=== PATIENT | female | born 1990 | race African-American/Black ===

== ENCOUNTER 2020-02-11 16:21 | Inpatient (IN) | payer MEDICAID ==
[~2020-02-11] VITALS: Ht 160 cm; Wt 96.1 kg
[2020-02-11 17:37] LABS: Basophils # (auto) 0.1 10 ^3/uL (0-0.2); Eosinophils # (auto) 0 10 ^3/uL (0-0.8); Hemoglobin 10.3 g/dL (12.2-16.2); Neutrophils # (auto) 4.7 10 ^3/uL (1.6-8.6)
[2020-02-11 17:38] LABS: Basophils % (auto) 0.8 % (0.0-2.0); Eosinophils % (auto) 0.7 % (0.0-7.0); Hematocrit 34.1 % (36.0-46.0); Lymphocytes # (auto) 1.7 10 ^3/uL (0.4-5.4); Lymphocytes % (auto) 23.9 % (10.0-50.0); Mean Corpuscular Hemoglobin 20.2 pg (28.0-32.0); Mean Corpuscular Hgb Conc. 30.3 g/dL (32.0-36.0); Mean Corpuscular Volume 66.4 fL (80.0-100.0); Monocytes # (auto) 0.5 10 ^3/uL (0-1.3); Monocytes % (auto) 6.5 % (0.0-12.0); Neutrophils % (auto) 68.1 % (37.0-80.0); Nucleated Red Blood Cells % 0.9 %; Platelet Count (auto) 205 10^3/uL (140-450); Red Blood Cells 5.13 10^6/uL (4.0-5.20); White Blood Cell 6.9 10^3/uL (4.4-10.8)
[2020-02-11 17:52] LABS: INR 1.4 (0.9-1.15); Partial Thromboplastin Time 23.1 sec (23.0-31.2)
[2020-02-11 17:56] LABS: Albumin 2.6 g/dL (3.4-5.0); Anion Gap 9 (5-15); Blood Urea Nitrogen 12 mg/dL (7-18); Calcium 8.1 mg/dL (8.5-10.1); Carbon Dioxide 21 mmol/L (21-32); Chloride 110 mmol/L (98-107); Glucose 117 mg/dL (74-106); Potassium 3.8 mmol/L (3.5-5.1); Sodium 140 mmol/L (136-145)
[2020-02-11 18:08] LABS: Alanine Aminotransferase 32 U/L (13-56); Alkaline Phosphatase 102 U/L (45-117); Aspartate Aminotransferase 23 U/L (15-37); BUN/Creatinine Ratio 13.3; Bilirubin, Total 1.1 mg/dL (0.2-1.0); GFR African American 95 mL/min; GFR Non-African American 79 mL/min; Total Protein 6.2 g/dL (6.4-8.2)
[2020-02-11] MEDS ORDERED: SPIRONOLACTONE 25 MG TAB PO ONE (19:00)
[2020-02-11] MEDS ORDERED: FUROSEMIDE 40 MG/4 ML VIAL IV ONE (19:00)
[2020-02-11] MEDS ORDERED: IOHEXOL 350 MG/ML 100ML IJ ONE (19:18)
[2020-02-11] MEDS ORDERED: TEMAZEPAM 15 MG CAP PO PRN (21:15)
[2020-02-11] MEDS ORDERED: MORPHINE SULF INJ 2 MG/ML SYRINGE 1ML IV PRN (21:15)
[2020-02-11] MEDS ORDERED: ONDANSETRON HCL 4 MG/2 ML VIAL IV PRN (21:15)
[2020-02-11] MEDS ORDERED: NITROGLYCERIN 0.4 MG SL TAB SL PRN (21:15)
[2020-02-11 22:25] VITALS: BP 118/83
--- NOTE | 2020-02-11 22:25 | NUR ---
Telemetry admit from ER SORAYA HOLLIS admitted to Telemetry unit after SBAR received. Patient oriented to Sherri Moreno, primary RN, unit, room, bed, and unit policies regarding patient care and visiting hours. Patient now on continuous telemetry monitoring, tele box #[id number] and telemetry reading on arrival to unit is [facility]. Patient placed on bedside oxygen, weighed by bed scale and encouraged to call if they need something. All questions and concerns addressed, patient verbalized understanding.
[2020-02-11 22:49] VITALS: BP 118/83
--- NOTE | 2020-02-11 23:00 | NUR ---
[facility] SWAB SENT TO LAB PATIENT REPORTS BEING ADMITTED TO A HOSPITAL WITHIN 30 DAYS.
--- NOTE | 2020-02-11 23:00 | NUR ---
PEPPER SPRAY PEPPER SPRAY COLLECTED FROM PATIENT AND TURNED INTO SECURITY OFFICERS FOR SAFETY STORAGE. PATIENT ID LABEL PLACED ON PEPPER SPRAY AND ON COLLECTION BAG.
[2020-02-11] MEDS: FAMOTIDINE 20 MG TAB PO SCH (23:02)
[2020-02-11] MEDS: CARVEDILOL 3.125 MG TAB PO SCH (23:02)
--- NOTE | 2020-02-12 00:06 | NUR ---
ROUNDS PATIENT RESTING COMFORTABLE IN BED, BED IS LOCKED AT LOWEST POSITION, BED RAILS UP X2. BEDSIDE TABLE WITHIN REACH, CALL LIGHT WITHIN REACH. WILL CONTINUE TO MONITOR Q1H AND PRN.
[2020-02-12 05:35] VITALS: BP 123/79
[2020-02-12] MEDS ORDERED: FUROSEMIDE 20 MG/2 ML VIAL IV SCH (06:00)
[2020-02-12 06:53] LABS: Basophils # (auto) 0 10 ^3/uL (0-0.2); White Blood Cell 6.4 10^3/uL (4.4-10.8)
[2020-02-12 06:54] LABS: Basophils % (auto) 0.7 % (0.0-2.0); Eosinophils # (auto) 0 10 ^3/uL (0-0.8); Eosinophils % (auto) 0.4 % (0.0-7.0); Hematocrit 34.3 % (36.0-46.0); Hemoglobin 10.3 g/dL (12.2-16.2); Lymphocytes # (auto) 1.7 10 ^3/uL (0.4-5.4); Lymphocytes % (auto) 27.2 % (10.0-50.0); Mean Corpuscular Hemoglobin 20.5 pg (28.0-32.0); Mean Corpuscular Hgb Conc. 29.9 g/dL (32.0-36.0); Mean Corpuscular Volume 68.4 fL (80.0-100.0); Monocytes # (auto) 0.6 10 ^3/uL (0-1.3); Monocytes % (auto) 8.7 % (0.0-12.0); Nucleated Red Blood Cells % 1.1 %; Platelet Count (auto) 201 10^3/uL (140-450); Red Blood Cells 5.02 10^6/uL (4.0-5.20); Red Cell Distribution Width 18.3 % (11.8-14.3)
[2020-02-12 07:09] LABS: Potassium 3.7 mmol/L (3.5-5.1)
[2020-02-12 07:14] LABS: BUN/Creatinine Ratio 16.9; Calcium 7.9 mg/dL (8.5-10.1)
[2020-02-12 09:00] VITALS: BP 124/64
[2020-02-12] MEDS ORDERED: LISINOPRIL 5 MG TAB PO SCH (10:00)
[2020-02-12] MEDS: ASPirin 81 mg TAB PO SCH (10:40)
[2020-02-12] MEDS: ENOXAPARIN SOD 40 MG/0.4 ML SYRINGE SC SCH (10:40)
[2020-02-12] MEDS: CARVEDILOL 3.125 MG TAB PO SCH ×2 (10:41→22:04)
[2020-02-12] MEDS: FAMOTIDINE 20 MG TAB PO SCH ×2 (10:41→22:04)
[2020-02-12 13:00] VITALS: BP 118/86
[2020-02-12 15:46] LABS: Alcohol, Urine < 3.0 mg/dL (0-10); Amphetamine Screen, Urine NEGATIVE (NEGATIVE); Barbiturate Scree,Urine NEGATIVE (NEGATIVE); Benzodiazephine Screen, Urine NEGATIVE (NEGATIVE); Cannabinoid Screen, Urine POSITIVE (NEGATIVE); Cocaine Screen, Urine NEGATIVE (NEGATIVE); Opiate Scree,Urine NEGATIVE (NEGATIVE); Phencyclidine Screen, Urine NEGATIVE (NEGATIVE)
[2020-02-12 17:00] VITALS: BP 111/81
[2020-02-12] MEDS: FUROSEMIDE 20 MG/2 ML VIAL IV SCH (18:35)
--- NOTE | 2020-02-12 19:10 | NUR ---
OPENING NOTE- NOC SHIFT PATIENT IS ALERT AND ORIENTED X4 ANSWERS IN COMPLETE SENTENCES AND MAKES APPROPRIATE EYE CONTACT. PATIENT IS SITTING AT EDGE OF BED STATING THAT SHE IS FEELING HEART PALPITATION AND STATES THAT DAY SHIFT RN "PUSHED LASIX IN WAY TOO FAST". PATIENT IS RUNNING SINUS TACH AT 100. S1 AND S2 SOUNDS PRESENT AND EVEN. PATIENT DENIES CHEST PAIN. ASSISTED PATIENT INTO BED AND EDUCATED WITH HER RELAX TECHNIQUES; PATIENT REPORTED TO FEEL BETTER. DISCUSSED POC WITH PATIENT AND INSTRUCTED PATIENT TO CALL PRN; PATIENT VERBALIZED UNDERSTANDING. PATIENT IS ON CONTIUOUS FENCE SETTER. VS WNL WITH EXCEPTION TO HR AT 100; THIS HAS BEEN AN AVERAGE HR FOR THIS PATIENT WHILE ON THIS UNIT. WILL CONTINUE TO MONITOR.
[2020-02-12 19:15] LABS: Urine Bacteria FEW /hpf (None Seen); Urine Blood 2+ /uL (Negative); Urine Mucus FEW (None Seen); Urine WBC 12 /hpf (0 - 5)
--- NOTE | 2020-02-12 20:10 | NUR ---
PATIENT IS COMFORTABLE IN BED. PATIENT STATES TO FEEL BETTER AND RELAXED. HR 98. NO S/SX OF DISTRESS, SOB OR PAIN.
[2020-02-12 22:00] VITALS: BP 114/77
[2020-02-12] MEDS: POTASSIUM CHL 20 Meq TABLET PO SCH (22:04)
[2020-02-12] MEDS: ENALAPRIL MALEATE 2.5 MG TAB PO SCH (22:05)
[2020-02-13] VITALS (7 sets, daily range): BP systolic 108–115; BP diastolic 68–85
--- NOTE | 2020-02-13 00:50 | NUR ---
DR Shon KOVACS AT BEDSIDE FOR CARDIAC CONSULTATION. DR Shon KOVCAS STATED THAT HE WOULD UPDATE DR BYRD AND ASK HIM TO FOLLOW UP WITH IMAGE AND ECHO REPORTS.
[2020-02-13] MEDS: FUROSEMIDE 20 MG/2 ML VIAL IV SCH ×2 (06:04→18:42)
[2020-02-13 06:41] LABS: Potassium 4.1 mmol/L (3.5-5.1)
[2020-02-13 06:51] LABS: BUN/Creatinine Ratio 17.4; Calcium 8.3 mg/dL (8.5-10.1)
--- NOTE | 2020-02-13 08:00 | NUR ---
ASSESSMENT NOTE PT IS ALERT ORIENTED X4, RESTING IN BED COMFORTABLY, NO DISTRESS NOTED, ABLE TO SELF REPOSITION AND VERBALIS NEEDS, AMBULATE NEEDED, PAIN 0/10, PT CONTINUE COMPLYING WITH THE FLUIDS RESTRICTION, CALL LIGHT WITHIN REACH
[2020-02-13] MEDS: ENOXAPARIN SOD 40 MG/0.4 ML SYRINGE SC SCH (09:27)
[2020-02-13] MEDS: ENALAPRIL MALEATE 2.5 MG TAB PO SCH ×2 (09:28→22:15)
[2020-02-13] MEDS: ASPirin 81 mg TAB PO SCH (09:28)
[2020-02-13] MEDS: POTASSIUM CHL 20 Meq TABLET PO SCH (09:28)
[2020-02-13] MEDS: FAMOTIDINE 20 MG TAB PO SCH ×2 (09:28→22:13)
[2020-02-13] MEDS: CARVEDILOL 3.125 MG TAB PO SCH ×2 (09:29→22:14)
--- NOTE | 2020-02-13 11:41 | NUR ---
DR CAREY IS HERE FOLLOWING UP ON PT WITH NEW ORDERS
--- NOTE | 2020-02-13 18:42 | NUR ---
PT CONTINUE STABLE, COMPLYING ON FLUID RESTRICTION, CONTINUE MONITORING
--- NOTE | 2020-02-13 19:20 | NUR ---
Opening Shift Note Assumed patient care from Latia RN. Patient is AOx4 w/ HOB at 30 degrees. Patient has no s/s of distress or SOB. Discussed plan of care w/ patient and all questions answered. Bed locked in lowest position and call light is within reach. Will continue to monitor.
[2020-02-14 04:49] VITALS: BP 102/70
[2020-02-14] MEDS: FUROSEMIDE 20 MG/2 ML VIAL IV SCH (05:52)
[2020-02-14 06:09] LABS: BUN/Creatinine Ratio 20.8; Calcium 8.4 mg/dL (8.5-10.1); Potassium 4.2 mmol/L (3.5-5.1)
--- NOTE | 2020-02-14 07:30 | NUR ---
Opening Shift Note Assumed care of patient, awake and alert. No S/S of distress/SOB or pain.Denies chest pain, zoll vest in place Instructed on POC and to call for assist PRN, will continue to monitor for changes Q1hr and PRN.
[2020-02-14 08:30] VITALS: BP 111/75
[2020-02-14] MEDS: ENOXAPARIN SOD 40 MG/0.4 ML SYRINGE SC SCH (10:18)
[2020-02-14] MEDS: ASPirin 81 mg TAB PO SCH (10:18)
[2020-02-14] MEDS: ENALAPRIL MALEATE 2.5 MG TAB PO SCH (10:19)
[2020-02-14] MEDS: FAMOTIDINE 20 MG TAB PO SCH (10:19)
[2020-02-14] MEDS: CARVEDILOL 3.125 MG TAB PO SCH (10:19)
[2020-02-14] MEDS ORDERED: CAR3125T PO (10:59)
[2020-02-14] MEDS ORDERED: ASPI81CH43 PO (10:59)
[2020-02-14] MEDS ORDERED: ENAL2.5T7 PO (10:59)
[2020-02-14] MEDS ORDERED: FURO40TA4 PO (10:59)
[2020-02-14 11:48] VITALS: BP 111/75
--- NOTE | 2020-02-14 14:09 | NUR ---
Discharge instructions given as ordered. Encourage to follow up with PMD as instructed. All questions and concerns addressed. Patient verbalized understanding. Medication reconciliation form completed and copy given to patient.. IV removed with catheter intact, pressure dressing applied,. Telemetry unit returned to ICU. Patient taken to vehicle via wheelchair with all personal belongings, accompanied by staff to family member. No distress noted at time of departure.
== END 2020-02-14 14:20 | disposition home or self-care (01) | DRG 194 ==
LOC: ER 16:21 → TELE 16:22 → TELE-WESTW 22:25
PROVIDERS: ADMIT Nurse Practitioner; ATTEND Internal Medicine
DX: I11.0 Hypertensive heart disease with heart failure (principal); I31.3 Pericardial effusion (noninflammatory); I50.43 Acute on chronic combined systolic (congestive) and diastolic (congestive) heart failure; D50.9 Iron deficiency anemia, unspecified; E44.0 Moderate protein-calorie malnutrition; J91.8 Pleural effusion in other conditions classified elsewhere; I42.9 Cardiomyopathy, unspecified; Z82.49 Family history of ischemic heart disease and other diseases of the circulatory system
CPT/HCPCS: 36415; 71045; 71275; 80048; 80053; 80307; 81001; 83735; 83880; 84443; 84484; 85025; 85379; 85610; 85730; 87081; 93005; 93306; 93970; G0378